=== PATIENT | male | born 1950 | race Caucasian/White ===

== ENCOUNTER → 2019-09-11 | Outpatient (CLI) | payer MEDICARE ==
[~2019-09-11] MED LIST: AMLO10TA8 PO; BUPR150T28 PO; CHOL200052 PO; CLOP75TA PO; DOXA2TAB9 PO; HYDROCHLOROTH12.5 MG PO; LEVO100T5 PO; SERT100T32 PO; SIMV20TA19 PO
== END | disposition home or self-care (01) ==
LOC: CVU 15:14
PROVIDERS: ATTEND Family Medicine
DX: R60.0 Localized edema (principal); Z86.73 Personal history of transient ischemic attack (TIA), and cerebral infarction without residual deficits
CPT/HCPCS: 93971

== ENCOUNTER 2019-12-30 08:48 | Outpatient (CLI) | payer MEDICARE | END 2019-12-30 23:59 | disposition home or self-care (01) | LOC: CVU 08:48 | PROVIDERS: ATTEND Surgery | DX: R60.9 Edema, unspecified (principal) | CPT/HCPCS: 93971 ==